=== PATIENT | female | born 1990 | race Two or more races ===

== ENCOUNTER 2019-04-29 21:47 | Emergency (ER) | payer MEDICAID ==
[~2019-04-29] VITALS: Ht 152.4 cm; Wt 62.0 kg
[2019-04-29 21:50] VITALS: BP 115/78
== END 2019-04-30 05:02 | disposition left against medical advice (07) ==
LOC: ER 21:47
DX: Z53.21 Procedure and treatment not carried out due to patient leaving prior to being seen by health care provider (principal)